=== PATIENT | male | born 2000 | race American Indian/Alaskan Native ===

== ENCOUNTER 2021-02-10 01:53 | Emergency (ER) | payer OTHER ==
[2021-02-10] MEDS: IBUPROFEN ORAL LIQD 100 MG/5 ML ORAL.LIQD PO ONE ×2 (03:50→04:06)
[2021-02-10] MEDS: predniSONE 20 MG TAB PO ONE ×2 (03:50→04:05)
[2021-02-10] MEDS: IPRATROPIUM/ALBUTEROL SULFATE 3 ML AMPUL.NEB IH ONE ×2 (03:54→04:06)
--- NOTE | 2021-02-10 04:38 | XRay Report ---
CHEST PA AND LATERAL VIEWS INDICATION: cough, dyspnea, asthma. COMPARISON: None. FINDINGS: Support devices: None. Heart: Within normal limits. Lungs/Pleura: No acute pulmonary or pleural findings. IMPRESSION: 1. No acute findings. Signer Name: Ruslan Prescott MD Signed: 02/10/2021 4:34 AM Workstation Name: [id number]
[2021-02-10 05:00] VITALS: BP 125/60
--- NOTE | 2021-02-10 05:04 | Emergency Department Report ---
- General Chief Complaint: Chest Pain Stated Complaint: CHEST PAIN Source: patient Mode of arrival: Ambulatory Limitations: No Limitations - History of Present Illness Initial Comments: Patient is a 20-year-old -[place]oven[place] male with a history of asthma, eczema and chronic tobacco abuse who presents to the ED with complaint of acute onset persistent nasal and sinus congestion, sore throat, headache, diffuse body aches and pains, persistent dry cough with wheezing and shortness of breath for the last 1 week, worse in the last 2 days. Patient states that he has been using his albuterol inhaler and nebulizers at home with no relief. Patient denies dizziness, syncope, fever, chills, chest pain, abdominal pain, nausea and vomiting or diarrhea. MD Complaint: cough, sore throat, rhinorrhea, nasal congestion, sinus pain -: Sudden, week(s) (1) Severity: moderate Severity scale (0 -10): 5 Quality: sharp, aching Consistency: constant Improves With: nothing Worsens With: nothing Associated Symptoms: denies other symptoms, rhinorrhea, nasal congestion, sore throat, cough, shortness of breath (Wheezing). denies: fever, chills, myalgias, diaphoresis, headache, stiff neck, chest pain, abdominal pain, nausea, vomiting, diarrhea, dysuria, rash, confusion, right sweats, weight loss, epistaxis, hoarseness, ear pain Treatments Prior to Arrival: other (Bronchodilators) - Related Data Previous Rx's Medication Instructions Recorded Last Taken Type Azithromycin [Zithromax Z-HERI] 250 mg PO DAILY #6 tablet 02/10/21 Unknown Rx Benzonatate [Tessalon Perles] 100 mg PO Q8HR #30 capsule 02/10/21 Unknown Rx Cetirizine HCl [Zyrtec 10mg tab] 10 mg PO DAILY #30 tablet 02/10/21 Unknown Rx methylPREDNISolone [Medrol 4MG 4 mg PO DAILY #21 tab.ds.pk 02/10/21 Unknown Rx DOSEPAK (21 tabs)] Allergies Allergy/AdvReac Type Severity Reaction Status Date / Time peanut Allergy Swelling Verified 02/10/21 03:40 sea food Allergy Swelling Uncoded 02/10/21 03:40 ED Review of Systems ROS: Stated complaint: CHEST PAIN Other details as noted in HPI Constitutional: denies: chills, fever Eyes: denies: eye pain, eye discharge, vision change ENT: throat pain, congestion. denies: ear pain Respiratory: cough, shortness of breath, wheezing Cardiovascular: denies: chest pain, palpitations Endocrine: no symptoms reported Gastrointestinal: denies: abdominal pain, nausea, diarrhea Genitourinary: denies: urgency, dysuria Musculoskeletal: denies: back pain, joint swelling, arthralgia Skin: denies: rash, lesions Neurological: denies: headache, weakness, paresthesias Psychiatric: denies: anxiety, depression Hematological/Lymphatic: denies: easy bleeding, easy bruising ED Past Medical Hx - Past Medical History Hx Asthma: Yes - Surgical History Past Surgical History?: No - Medications Home Medications: Home Medications Medication Instructions Recorded Confirmed Last Taken Type Azithromycin [Zithromax Z-HERI] 250 mg PO DAILY #6 tablet 02/10/21 Unknown Rx Benzonatate [Tessalon Perles] 100 mg PO Q8HR #30 capsule 02/10/21 Unknown Rx Cetirizine HCl [Zyrtec 10mg tab] 10 mg PO DAILY #30 tablet 02/10/21 Unknown Rx methylPREDNISolone [Medrol 4MG 4 mg PO DAILY #21 tab.ds.pk 02/10/21 Unknown Rx DOSEPAK (21 tabs)] ED Physical Exam - General Limitations: No Limitations General appearance: alert, in no apparent distress - Head Head exam: Present: atraumatic, normocephalic, normal inspection - Eye Eye exam: Present: normal appearance, PERRL, EOMI Pupils: Present: normal accommodation - ENT ENT exam: Present: mucous membranes moist, normal external ear exam, other (Grossly congested nasal passages; erythematous oropharynx with no exudates) - Neck Neck exam: Present: normal inspection, full ROM, lymphadenopathy (Anterior cervical lymphadenopathy) - Respiratory Respiratory exam: Present: wheezes (Mildly diffuse coarse wheezes throughout). Absent: respiratory distress, rales, rhonchi, decreased breath sounds - Cardiovascular Cardiovascular Exam: Present: regular rate, normal rhythm, normal heart sounds. Absent: systolic murmur, diastolic murmur, rubs, gallop - GI/Abdominal GI/Abdominal exam: Present: soft, normal bowel sounds. Absent: tenderness, hyperactive bowel sounds, hypoactive bowel sounds, organomegaly - Extremities Exam Extremities exam: Present: normal inspection, full ROM, normal capillary refill - Back Exam Back exam: Present: normal inspection, full ROM. Absent: tenderness, CVA tenderness (R), CVA tenderness (L), muscle spasm, paraspinal tenderness, vertebral tenderness - Neurological Exam Neurological exam: Present: alert, oriented X3, CN II-XII intact, normal gait, reflexes normal - Psychiatric Psychiatric exam: Present: normal affect, normal mood - Skin Skin exam: Present: warm, dry, intact, normal color. Absent: rash ED Medical Decision Making - Radiology Data Radiology results: report reviewed, image reviewed [facility] [address] [place] [address] XRay Report Signed Patient: PEPPER PAPPAS MR#: [id number] 4 : 2000 Acct:[id number] Age/Sex: 20 / M ADM Date: 02/10/21 Loc: ED Attending Dr: Ordering Physician: MAGDALENA ANDINO Date of Service: 02/10/21 Procedure(s): XR chest routine 2V Accession Number(s): [id number] cc: MAGDALENA ANDINO Fluoro Time In Minutes: CHEST PA AND LATERAL VIEWS INDICATION: cough, dyspnea, asthma. COMPARISON: None. FINDINGS: Support devices: None. Heart: Within normal limits. Lungs/Pleura: No acute pulmonary or pleural findings. IMPRESSION: 1. No acute findings. Signer Name: Ruslan Prescott MD Signed: 02/10/2021 4:34 AM Workstation Name: [id number] Transcribed By: GOVIND Dictated By: Ruslan Prescott MD Electronically Authenticated By: Ruslan Prescott MD Signed Date/Time: 02/10/21433 DD/ 3 TD/TT: - Medical Decision Making This is a 20-year-old -[place]ovenian male with a history of asthma, eczema and chronic tobacco abuse who presents to the ED with complaint of acute onset persistent nasal and sinus congestion, sore throat, headache, diffuse body aches and pains, persistent dry cough with wheezing and shortness of breath for the last 1 week, worse in the last 2 days. In the ED, patient is alert and oriented x3 and is not in any distress. Patient's oxygen saturation in room air is 96%. Patient however had audible wheezes diffusely. Patient was treated in the ED with DuoNeb and also given prednisone. Chest x-ray showed no acute cardiopulmonary abnormalities or pneumonitis. On reevaluation, patient felt better, wheezing resolved and patient was discharged home on medications and advised to follow-up with his primary care physician in 5 to 7 days for reevaluation. Patient is advised return to the ED immediately if symptoms get worse. - Differential Diagnosis Asthma; bronchitis; pneumonia; URI; strep pharyngitis Critical care attestation.: If time is entered above; I have spent that time in minutes in the direct care of this critically ill patient, excluding procedure time. ED Disposition Clinical Impression: Acute bronchitis with asthma with acute exacerbation, Acute upper respiratory infection Acute pharyngitis Qualifiers: Pharyngitis/tonsillitis etiology: unspecified etiology Qualified Code(s): J02.9 - Acute pharyngitis, unspecified Disposition: HOME / SELF CARE / HOMELESS Is pt being admited?: No Does the pt Need Aspirin: No Condition: Stable Instructions: Upper Respiratory Infection, Adult, [id number], Cough, Adult, [id number], Acute Bronchitis, Adult, [id number], Sore Throat, [id number] Additional Instructions: Chest x-ray showed no acute cardiopulmonary abnormalities or pneumonitis. Therefore take medication as needed, drink plenty of fluids and follow-up with your primary care physician in 5 to 7 days for reevaluation. Return to the ED immediately if symptoms get worse. Consider quitting cigarette smoking to improve on your symptoms. Prescriptions: methylPREDNISolone [Medrol 4MG DOSEPAK (21 tabs)] 4 mg PO DAILY #21 tab.ds.pk Benzonatate [Tessalon Perles] 100 mg PO Q8HR #30 capsule Azithromycin [Zithromax Z-HERI] 250 mg PO DAILY #6 tablet Cetirizine HCl [Zyrtec 10mg tab] 10 mg PO DAILY #30 tablet Referrals: [facility] [Provider Group] - 3-5 Days Time of Disposition: 05:04 Print Language: KAZAKH
--- NOTE | 2021-02-11 09:04 | Electrocardiograph Report ---
[facility] Test Date: 2021-02-10 Test Time: 02:03:57 Pat Name: PEPPER PAPPAS Department: Room: Gender: M [employer]: NURSE : 2000 Requested By: RACHEL VIRAMONTES Order Number: [id number] Reading MD: Pedro Maldonado Measurements Intervals [place] Rate: 87 P: 70 FL: 137 QRS: 60 QRSD: 76 T: 57 QT: 333 QTc: 400 Interpretive Statements Sinus rhythm ST elev, probable normal early repol pattern No previous ECG available for comparison Electronically Signed On 02-11-2021 9:04:26 EDT by Pedro Maldonado
== END 2021-02-10 05:38 | disposition home or self-care (01) ==
LOC: ED 01:53
DX: J20.9 Acute bronchitis, unspecified (principal); J45.901 Unspecified asthma with (acute) exacerbation; J02.9 Acute pharyngitis, unspecified
CPT/HCPCS: 71046; 93005; 99283; J7512